=== PATIENT | male | born 1965 | race Caucasian/White ===

== ENCOUNTER 2016-09-24 07:46 | Emergency (ER) | payer SELFPAY ==
[~2016-09-24] VITALS: Ht 188 cm; Wt 108.9 kg
[2016-09-24 08:01] VITALS: BP 176/113
[2016-09-24] MEDS ORDERED: LIDOCAINE 1% MDV 20ML VIAL As Ordered ONE (08:21)
[2016-09-24] MEDS ORDERED: ADACEL/BOOSTRIX VACCINE (DIPHTH/PERTUSS/ACELL/TETANUS)0.5ML SYR (90715) IM ONE (08:30)
[2016-09-24] MEDS ORDERED: LIDOCAINE 1% MDV 20ML VIAL SC ONE (08:30)
== END 2016-09-24 09:06 | disposition home or self-care (01) ==
LOC: M ED 08:17
DX: S81.819A Laceration without foreign body, unspecified lower leg, initial encounter (principal); W45.8XXA Other foreign body or object entering through skin, initial encounter; Y92.9 Unspecified place or not applicable; Y93.9 Activity, unspecified; Y99.1 Military activity